=== PATIENT | female | born 1960 | race Caucasian/White ===

== ENCOUNTER 2021-12-14 21:14 | Emergency (ER) | payer OTHER ==
[~2021-12-14] VITALS: Ht 167.6 cm; Wt 90.7 kg
[2021-12-14] MEDS ORDERED: IPRATROPIUM NEB FS 0.5 MG/2.5 ML AMPUL.NEB NEB ONE (21:30)
[2021-12-14] MEDS ORDERED: ALBUTEROL FS 2.5 MG/3 ML VIAL.NEB NEB ONE (21:30)
[2021-12-14] MEDS ORDERED: methylPREDNISolone SOD SUCC 125 MG/2ML VIAL IV ONE (21:30)
[2021-12-14] MEDS ORDERED: predniSONE 20 MG TABLET PO ONE (21:30)
--- NOTE | 2021-12-14 21:35 | NUR ---
BIBRA TO ER BED 6. AAOX4. SOB. NOTED WHEEZING. BROUGHT IN FOR ASTHMA ATTACK. PT ON MONITOR. PT WAS RECEIVING BREATHING TX UPON ARRIVAL BY EMS.
[2021-12-14] MEDS ORDERED: IPRATROPIUM NEB FS 0.5 MG/2.5 ML AMPUL.NEB ONE (21:36)
[2021-12-14] MEDS ORDERED: ALBUTEROL FS 2.5 MG/3 ML VIAL.NEB ONE ×2 (21:36→21:54)
[2021-12-14] MEDS ORDERED: methylPREDNISolone SOD SUCC 125 MG/2ML VIAL ONE (21:56)
[2021-12-14] MEDS ORDERED: ALBUTEROL FS 2.5 MG/3 ML VIAL.NEB CONTNEB ONE (22:00)
[2021-12-14] MEDS ORDERED: LORAZEPAM 1 MG TABLET PO ONE (22:30)
[2021-12-14] MEDS ORDERED: LORAZEPAM 1 MG TABLET ONE (22:34)
[2021-12-14] MEDS ORDERED: PRED20TA PO (22:42)
--- NOTE | 2021-12-14 23:07 | NUR ---
Patient discharged to home in stable condition. Written and verbal after care instructions given. Patient verbalizes understanding of instruction. Pt ambulatory with a steady gait
[2021-12-14 23:16] VITALS: BP 149/80
== END 2021-12-14 23:17 | disposition home or self-care (01) ==
LOC: ER 21:20
DX: J45.901 Unspecified asthma with (acute) exacerbation (principal); I10 Essential (primary) hypertension; J44.9 Chronic obstructive pulmonary disease, unspecified; E11.9 Type 2 diabetes mellitus without complications; Z79.52 Long term (current) use of systemic steroids
CPT/HCPCS: 71045; 93005; 94640 ×2; 96372; 99284; J2930

== ENCOUNTER 2022-09-14 02:23 | Inpatient (IN) | payer OTHER ==
[~2022-09-14] VITALS: Ht 167.6 cm; Wt 90.7 kg
[~2022-09-14 02:23] MED LIST: PRED20TA PO
--- NOTE | 2022-09-14 02:27 | NUR ---
BIBRA39 FROM HOME C/O SOB AFTER RUNNING OUT OF INHALER. PT A/OX4. EMS ADMIN AERSOL NEB ON 5LPM SATTING AT 95% CONNECTED PT TO POX AND MONITOR. SAFETY MEASURES IN PLACE.
--- NOTE | 2022-09-14 02:29 | NUR ---
DR. SARAH PURI AT PT'S BEDSIDE
[2022-09-14] MEDS ORDERED: methylPREDNISolone SOD SUCC 125 MG/2ML VIAL ONE (02:51)
[2022-09-14] MEDS ORDERED: Magnesium 1GM/D5W 100ML PREMIX 0 ML IV ONE (02:51)
[2022-09-14] MEDS ORDERED: IPRATROPIUM NEB FS 0.5 MG/2.5 ML AMPUL.NEB ONE (02:52)
[2022-09-14] MEDS ORDERED: ALBUTEROL FS 2.5 MG/3 ML VIAL.NEB ONE ×2 (02:52→04:41)
[2022-09-14] MEDS ORDERED: IPRATROPIUM NEB FS 0.5 MG/2.5 ML AMPUL.NEB NEB ONE (03:00)
[2022-09-14] MEDS ORDERED: ALBUTEROL FS 2.5 MG/3 ML VIAL.NEB NEB ONE ×2 (03:00→05:00)
[2022-09-14] MEDS ORDERED: Magnesium 1GM/D5W 100ML PREMIX 200 ML IV ONE (03:00)
[2022-09-14] MEDS ORDERED: methylPREDNISolone SOD SUCC 125 MG/2ML VIAL IV ONE (03:00)
--- NOTE | 2022-09-14 03:00 | NUR ---
COVID ANTIGEN SWAB COLLECTED AND SENT TO LAB
--- NOTE | 2022-09-14 03:00 | NUR ---
RT AT PT'S BEDSIDE FOR ABG AND BREATHING TX
[2022-09-14 03:06] LABS: SITE, VBG Left Radial; VBG COHb 0.3 %; VBG MetHb 0.2 %; VBG O2Hb 74.9 %; VENT MODE, VBG RA
[2022-09-14] MEDS ORDERED: predniSONE 20 MG TABLET ONE (03:06)
--- NOTE | 2022-09-14 03:12 | NUR ---
LEAD CASE MANAGER AT PT'S BEDSIDE
--- NOTE | 2022-09-14 03:21 | NUR ---
PROCUREMENT PROFESSIONAL AT PT'S BEDSIDE
[2022-09-14] MEDS ORDERED: predniSONE 50 MG TABLET PO ONE (03:30)
[2022-09-14 03:33] LABS: BASOPHILS % (AUTO) 0.2 % (0.0-2.0); EOSINOPHILS % (AUTO) 0.8 % (0.0-6.0); HEMATOCRIT 27 % (33-45); HEMOGLOBIN 8.6 g/dL (11.5-14.8); LYMPHOCYTES # (AUTO) 1.1 K/uL (0.8-4.8); MEAN CORPUSCULAR HGB CONC 32 g/dl (31.0-36.0); MEAN CORPUSCULAR VOLUME 89 fL (82-100); MONOCYTES % (AUTO) 12.7 % (2.0-12.0); NEUTROPHILS # (AUTO) 5.7 K/uL (1.8-8.9); NEUTROPHILS % (AUTO) 72.3 % (43.0-81.0); PLATELET COUNT (AUTO) 247 K/uL (150-450); RED BLOOD CELL COUNT(AUTO) 3.02 MIL/uL (4.0-5.2); WHITE BLOOD COUNT (AUTO) 7.9 K/uL (4.3-11.0)
[2022-09-14 03:50] LABS: ALANINE AMINOTRANSFERASE 50 U/L (12-78); ALBUMIN 2.8 g/dL (3.4-5.0); ALKALINE PHOSPHATASE 168 U/L (46-116); ASPARTATE AMINOTRANSFERASE 77 U/L (15-37); BILIRUBIN,DIRECT 0.6 mg/dL (0.0-0.2); BILIRUBIN,TOTAL 0.7 mg/dL (0.2-1.0); CARBON DIOXIDE 30 mmol/L (21-32); CHLORIDE 102 mmol/L (98-107); CREATININE 0.6 mg/dL (0.6-1.3); GLUCOSE 128 mg/dL (74-106); SODIUM SERUM 143 mmol/L (136-145); TOTAL PROTEIN, SERUM 6.8 g/dL (6.4-8.2); UREA NITROGEN, BLOOD 5 mg/dL (7-18)
[2022-09-14 03:58] LABS: POTASSIUM 2.5 mmol/L (3.5-5.1)
[2022-09-14] MEDS ORDERED: ASPIRIN 325 MG TABLET ONE (04:20)
[2022-09-14] MEDS ORDERED: POTASSIUM CHLORIDE 20 MEQ POWDER PACKET ONE (04:20)
[2022-09-14] MEDS ORDERED: POTASSIUM CHLORIDE 20 MEQ POWDER PACKET PO ONE ×2 (04:30→13:00)
[2022-09-14] MEDS ORDERED: ASPIRIN 325 MG TABLET PO ONE (04:30)
--- NOTE | 2022-09-14 04:48 | NUR ---
IV ESTABLISHED LAC #20G S/L
--- NOTE | 2022-09-14 04:49 | NUR ---
RT AT PT'S BEDSIDE FOR BREATHING TX
--- NOTE | 2022-09-14 05:17 | NUR ---
CALLED RADIOLOGY TO F/U IF XRAY IMAGE SENT TO [facility]
[2022-09-14] MEDS ORDERED: INSULIN REGULAR, HUMAN 100 UNIT/ML 3 ML VIAL SQ PRN (06:00)
[2022-09-14] MEDS ORDERED: DEXTROSE 50%-WATER 50 ML DISP.SYRIN IV PRN (06:00)
[2022-09-14] MEDS ORDERED: ONDANSETRON HCL/PF 4 MG/2 ML VIAL IVP PRN (06:00)
[2022-09-14] MEDS ORDERED: ACETAMINOPHEN 325 MG TABLET PO PRN (06:00)
[2022-09-14] MEDS ORDERED: ENOXAPARIN SODIUM 100 MG/ML DISP.SYRIN SQ SCH (07:08)
[2022-09-14] MEDS ORDERED: ENOXAPARIN SODIUM 100 MG/ML DISP.SYRIN SQ ONE (07:11)
--- NOTE | 2022-09-14 07:17 | NUR ---
ADLS DONE; PT URINATED VIA BED ORTIZ. PT KEPT CLEAN AND DRY.
--- NOTE | 2022-09-14 08:00 | NUR ---
BED SUIUKTXJ=[id number]
--- NOTE | 2022-09-14 08:29 | NUR ---
PT REPORT GIVEN TO JAYDA KLINE.
--- NOTE | 2022-09-14 08:33 | NUR ---
PT TRANSFERRED TO UNIT VIA GURNEY. WARM HANDOFF GIVEN TO RN ASSIGNED.
--- NOTE | 2022-09-14 08:40 | NUR ---
SCIENCE AND OPERATIONS OFFICER NOTES RECEIVED PT FROM E.R. STAFF VIA BED, PT IS AWAKE, ALERT AND ORIENTED, DENIES PAIN, NO COMPLAINT OF SHORTNESS OF BREATH, ASSISTED TO BED, MADE COMFORTABLE, COMPLAINED OF FEELING HOT, PROVIDED PT WITH AN ELECTRIC FAN, VERBALIZED RELIEF, ROOM SET UP ORIENTATION PROVIDED, VERBALIZED UNDERSTANDING, STATED THAT SHE TAKES OMEPRAZOLE DAILY AND WILL NOT BE ABLE TO EAT WITHOUT TAKING IT, DR. THOMAS INFORMED IF WE COULD START ON PROTONIX DAILY, AWAITING FOR CALL BACK.
[2022-09-14 08:42] VITALS: BP 152/74
[2022-09-14] MEDS ORDERED: BUME1TAB8 PO (09:40)
[2022-09-14] MEDS ORDERED: OMEP40CA21 PO (09:40)
[2022-09-14] MEDS ORDERED: POTA-10 PO (09:40)
[2022-09-14] MEDS: BLOOD SUGAR DIAGNOSTIC 1 EACH STRIP IN SCH ×2 (09:51→12:11)
--- NOTE | 2022-09-14 10:00 | NUR ---
AVIATION TECHNICIAN AIRCRAFT NOTES PT REFUSED INITIAL PHYSICAL ASSESSMENT AND SKIN PHOTOS, STATED THAT SHE WANTS TO REST.
[2022-09-14] MEDS ORDERED: POTASSIUM CL. PREMIX PERIPHER. 50 ML IV SCH ×2 (13:00→14:00)
[2022-09-14] MEDS ORDERED: methylPREDNISolone SOD SUCC 40 MG/ML VIAL IV SCH (13:00)
[2022-09-14] MEDS ORDERED: PANTOPRAZOLE 40 MG TABLET.DR PO SCH (13:00)
--- NOTE | 2022-09-14 13:17 | NUR ---
SEEN AND EXAMINED BY DR THOMAS. MED ORDERED
[2022-09-14] MEDS ORDERED: LORAZEPAM INJ 2 MG/ML VIAL IV ONE (13:30)
--- NOTE | 2022-09-14 15:15 | NUR ---
COOLER CONVEYOR LOADER NOTES PT IN BED, AWAKE, ALERT AND ORIENTED, NO COMPLAINT AT THIS TIME, STATED THAT SHE FEELS BETTER, PT REFUSED POTASSIUM REPLACEMENT, EXPLAINED RISKS, STILL REFUSED, STATED THAT SHE WOULD LIKE TO LEAVE AGAINST MEDICAL ADVISE, DISCUSSED RISKS OF LEAVING AMA, PT STILL WANTS TO LEAVE, SAID SHE WILL TAKE A TAXI, PT SAID SHE HAS O2 AT HOME, PT'S O2 SAT IS 96% OF 3L VIA N/C, NOT IN DISTRESS AT THIS TIME, PT SIGNED AMA FORM, PT INSTRUCTED TO GO TO THE NEAREST E.R. IN CASE OF EMERGENCY, VERBALIZED UNDERSTANDING, ASSISTED TO HOSPITAL LOBBY AND LEFT. CHARGE NURSE, NURSING MAINSPRING FORMER BRACE END AND DR. THOMAS INFORMED.
[2022-09-14] MEDS ORDERED: BUMETANIDE INJ 0.25 MG/ML VIAL IV ONE (19:00)
[2022-09-15] MEDS ORDERED: ASPIRIN EC 81 MG TABLET.DR PO SCH (09:00)
[2022-09-15] MEDS ORDERED: BUMETANIDE (1 MG) 1 MG TABLET PO SCH (09:00)
[2022-09-15] MEDS ORDERED: POTASSIUM CHLORIDE 10 MEQ TABLET.SA PO SCH (09:00)
== END 2022-09-14 15:15 | disposition left against medical advice (07) | DRG 140 ==
LOC: ER 02:39 → TELE 08:12
PROVIDERS: ADMIT Nurse Practitioner Acute Care; ATTEND Nurse Practitioner Acute Care
DX: J44.1 Chronic obstructive pulmonary disease with (acute) exacerbation (principal); I50.33 Acute on chronic diastolic (congestive) heart failure; I21.A1 Myocardial infarction type 2; I11.0 Hypertensive heart disease with heart failure; Z99.81 Dependence on supplemental oxygen; Z20.822 Contact with and (suspected) exposure to COVID-19; E11.9 Type 2 diabetes mellitus without complications; E66.01 Morbid (severe) obesity due to excess calories; E87.6 Hypokalemia; F41.9 Anxiety disorder, unspecified; K21.9 Gastro-esophageal reflux disease without esophagitis; Z87.891 Personal history of nicotine dependence; Z68.32 Body mass index [BMI] 32.0-32.9, adult
CPT/HCPCS: 36415; 36600; 71045-TC; 80048-TC; 80076-TC; 82803-TC; 82962-TC; 84132-TC; 84484-TC; 85025-TC; 87081-TC; 93307-TC; C9803; G0378; J1650; J1815; J2060; J2920; J2930; J3475

== ENCOUNTER 2022-11-26 02:17 | Inpatient (IN) | payer OTHER ==
[~2022-11-26] VITALS: Ht 162.6 cm; Wt 116.1 kg
[~2022-11-26 02:17] MED LIST changes: +BUME1TAB8 PO; +OMEP40CA21 PO; +POTA-10 PO; -PRED20TA PO
[2022-11-26] MEDS ORDERED: methylPREDNISolone SOD SUCC 125 MG/2ML VIAL ONE (02:25)
[2022-11-26] MEDS ORDERED: IPRATROPIUM NEB FS 0.5 MG/2.5 ML AMPUL.NEB ONE (02:28)
[2022-11-26] MEDS ORDERED: ALBUTEROL FS 2.5 MG/3 ML VIAL.NEB ONE ×2 (02:28→09:13)
[2022-11-26] MEDS ORDERED: ALBUTEROL FS 2.5 MG/3 ML VIAL.NEB NEB ONE (02:30)
[2022-11-26] MEDS ORDERED: IPRATROPIUM NEB FS 0.5 MG/2.5 ML AMPUL.NEB NEB ONE (02:30)
[2022-11-26] MEDS ORDERED: methylPREDNISolone SOD SUCC 125 MG/2ML VIAL IV ONE (02:30)
[2022-11-26 03:51] LABS: BASOPHILS % (AUTO) 0.4 % (0.0-2.0); EOSINOPHILS % (AUTO) 0.8 % (0.0-6.0); HEMATOCRIT 25 % (33-45); HEMOGLOBIN 7.7 g/dL (11.5-14.8); LYMPHOCYTES # (AUTO) 1.6 K/uL (0.8-4.8); MEAN CORPUSCULAR HGB CONC 30 g/dl (31.0-36.0); MEAN CORPUSCULAR VOLUME 78 fL (82-100); MONOCYTES # (AUTO) 0.6 K/uL (0.1-1.30); MONOCYTES % (AUTO) 9.5 % (2.0-12.0); NEUTROPHILS # (AUTO) 4.3 K/uL (1.8-8.9); NEUTROPHILS % (AUTO) 65.3 % (43.0-81.0); PLATELET COUNT (AUTO) 158 K/uL (150-450); RED BLOOD CELL COUNT(AUTO) 3.23 MIL/uL (4.0-5.2); WHITE BLOOD COUNT (AUTO) 6.6 K/uL (4.3-11.0)
[2022-11-26 04:05] LABS: CALCIUM, SERUM 8.3 mg/dL (8.5-10.1); CARBON DIOXIDE 33 mmol/L (21-32); CHLORIDE 98 mmol/L (98-107); CREATININE 0.6 mg/dL (0.6-1.3); GLUCOSE 164 mg/dL (74-106); SODIUM SERUM 140 mmol/L (136-145); UREA NITROGEN, BLOOD 6 mg/dL (7-18)
[2022-11-26 04:21] LABS: POTASSIUM 2.7 mmol/L (3.5-5.1)
[2022-11-26] MEDS ORDERED: POTASSIUM CHLORIDE 20 MEQ TAB.PRT.SR PO ONE ×2 (04:30→04:36)
[2022-11-26] MEDS: ALBUTEROL FS 2.5 MG/0.5 ML VIAL.NEB NEB SCH ×7 (05:00→23:35)
[2022-11-26] MEDS ORDERED: ALBUTEROL FS 2.5 MG/0.5 ML VIAL.NEB ONE (05:09)
[2022-11-26] MEDS ORDERED: hydrALAZINE HCL IV 20 MG VIAL IV PRN (05:30)
[2022-11-26] MEDS ORDERED: ALBUTEROL FS 2.5 MG/0.5 ML VIAL.NEB NEB PRN (05:30)
[2022-11-26] MEDS ORDERED: MORPHINE SULFATE INJ 2 MG/ML DISP.SYRIN IV PRN (05:30)
[2022-11-26] MEDS ORDERED: ACETAMINOPHEN 325 MG TABLET PO PRN (05:30)
[2022-11-26] MEDS ORDERED: ONDANSETRON HCL/PF 4 MG/2 ML VIAL IVP PRN (05:30)
[2022-11-26] MEDS ORDERED: IPRATROPIUM/ALBUTEROL INHALER IH SCH (06:00)
[2022-11-26 08:30] LABS: BILIRUBIN,DIRECT 0.2 mg/dL (0.0-0.2); BILIRUBIN,TOTAL 0.3 mg/dL (0.2-1.0)
[2022-11-26] MEDS: BUMETANIDE INJ 0.25 MG/ML VIAL IV SCH ×2 (09:00→13:30)
[2022-11-26] MEDS ORDERED: HEPARIN SODIUM, PORCINE 5000 UNITS/1 ML VIAL SQ SCH (09:00)
[2022-11-26] MEDS: IPRATROPIUM NEB FS 0.5 MG/2.5 ML AMPUL.NEB NEB SCH ×5 (09:21→23:35)
[2022-11-26] MEDS ORDERED: LORAZEPAM 1 MG TABLET ONE (09:37)
[2022-11-26] MEDS ORDERED: DILT180C66 PO (09:38)
[2022-11-26] MEDS ORDERED: FURO40TA5 PO (09:38)
[2022-11-26] MEDS ORDERED: IPRA3AMP23 NEB (09:38)
[2022-11-26] MEDS ORDERED: ALBU18HF2 IH (09:38)
[2022-11-26] MEDS ORDERED: LORAZEPAM 1 MG TABLET PO PRN (10:00)
[2022-11-26 12:00] VITALS: BP 132/75
[2022-11-26] MEDS: LORAZEPAM INJ 2 MG/ML VIAL IV PRN ×2 (12:48→20:14)
[2022-11-26] MEDS: methylPREDNISolone SOD SUCC 125 MG/2ML VIAL IV SCH ×2 (13:31→18:16)
[2022-11-26] MEDS: POTASSIUM CHLORIDE 20 MEQ TAB.PRT.SR PO SCH (13:31)
[2022-11-26] MEDS: LEVOFLOXACIN 750 MG /D5W 150ML 750 MG in PREMIX 1 EA IV SCH (15:05)
[2022-11-26 16:00] VITALS: BP 156/78
[2022-11-26] MEDS ORDERED: LORAZEPAM INJ 2 MG/ML VIAL IV ONE (16:30)
[2022-11-26 20:00] VITALS: BP 134/79
[2022-11-27] VITALS: BP 126/66
[2022-11-27] MEDS: ZOLPIDEM TARTRATE 10 MG TABLET PO PRN ×2 (01:08→21:04)
[2022-11-27] MEDS: methylPREDNISolone SOD SUCC 125 MG/2ML VIAL IV SCH ×3 (01:30→16:48)
[2022-11-27 04:00] VITALS: BP 128/70
[2022-11-27] MEDS: ALBUTEROL FS 2.5 MG/0.5 ML VIAL.NEB NEB SCH ×6 (04:12→23:54)
[2022-11-27] MEDS: IPRATROPIUM NEB FS 0.5 MG/2.5 ML AMPUL.NEB NEB SCH ×6 (04:13→23:54)
[2022-11-27] MEDS: LEVOFLOXACIN 750 MG /D5W 150ML 750 MG in PREMIX 1 EA IV SCH (06:06)
[2022-11-27 07:35] LABS: BASOPHILS % (AUTO) 0.1 % (0.0-2.0); HEMATOCRIT 25 % (33-45); HEMOGLOBIN 7.7 g/dL (11.5-14.8); LYMPHOCYTES # (AUTO) 0.2 K/uL (0.8-4.8); LYMPHOCYTES % (AUTO) 4.9 % (20.0-44.0); MEAN CORPUSCULAR HGB CONC 31 g/dl (31.0-36.0); MEAN CORPUSCULAR VOLUME 77 fL (82-100); MONOCYTES # (AUTO) 0.2 K/uL (0.1-1.30); MONOCYTES % (AUTO) 4.7 % (2.0-12.0); NEUTROPHILS # (AUTO) 3.9 K/uL (1.8-8.9); NEUTROPHILS % (AUTO) 90.3 % (43.0-81.0); PLATELET COUNT (AUTO) 150 K/uL (150-450); RED BLOOD CELL COUNT(AUTO) 3.18 MIL/uL (4.0-5.2); WHITE BLOOD COUNT (AUTO) 4.3 K/uL (4.3-11.0)
[2022-11-27 08:00] VITALS: BP 137/78
[2022-11-27 08:29] LABS: ALBUMIN 3.3 g/dL (3.4-5.0); BILIRUBIN,TOTAL 0.6 mg/dL (0.2-1.0); CALCIUM, SERUM 8.7 mg/dL (8.5-10.1); CREATININE 0.6 mg/dL (0.6-1.3); MAGNESIUM 1.6 mg/dL (1.8-2.4); PHOSPHORUS 2.9 mg/dL (2.5-4.9); POTASSIUM 3.4 mmol/L (3.5-5.1); TOTAL PROTEIN, SERUM 7.2 g/dL (6.4-8.2)
[2022-11-27 09:01] LABS: ABG BASE EXCESS -6.6 mmol/L; ABG PCO2 29.5 mmHg (35.0-45.0); ABG PH 7.391 (7.350-7.450); ABG PO2 83.4 mmHg (75.0-100.0); MetHb 0.2 % (0.0-1.5); O2Hb 94.3 % (94.0-97.0); SITE, ABG Right Radial
[2022-11-27] MEDS: BUMETANIDE INJ 0.25 MG/ML VIAL IV SCH (09:42)
[2022-11-27] MEDS: POTASSIUM CHLORIDE 20 MEQ TAB.PRT.SR PO SCH (09:43)
[2022-11-27] MEDS ORDERED: MAGNESIUM OXIDE 400 MG TABLET PO ONE (10:00)
[2022-11-27] MEDS ORDERED: PANTOPRAZOLE 40 MG TABLET.DR PO SCH (10:00)
[2022-11-27] MEDS: LORAZEPAM 0.5 MG TABLET PO PRN (10:20)
[2022-11-27 12:00] VITALS: BP 148/78
[2022-11-27 14:21] LABS: ABG BASE EXCESS 8.6 mmol/L; ABG OXYGEN SATURATION 82.2 % (92.0-98.5); ABG PCO2 40.5 mmHg (35.0-45.0); ABG PH 7.518 (7.350-7.450); ABG PO2 47.2 mmHg (75.0-100.0); AaDO2 104.7 mmHg; COHb 0.6 % (0.5-1.5); MetHb 0.4 % (0.0-1.5); O2Hb 81.4 % (94.0-97.0)
[2022-11-27 16:00] VITALS: BP 145/92
[2022-11-27] MEDS ORDERED: LORAZEPAM 0.5 MG TABLET PO ONE (18:00)
[2022-11-27 20:00] VITALS: BP 125/90
[2022-11-28] VITALS: BP 122/89
[2022-11-28] MEDS: methylPREDNISolone SOD SUCC 125 MG/2ML VIAL IV SCH ×2 (01:53→09:43)
[2022-11-28] MEDS: LORAZEPAM 0.5 MG TABLET PO PRN ×3 (01:53→16:01)
[2022-11-28] MEDS: ALBUTEROL FS 2.5 MG/0.5 ML VIAL.NEB NEB SCH ×4 (03:30→15:12)
[2022-11-28] MEDS: IPRATROPIUM NEB FS 0.5 MG/2.5 ML AMPUL.NEB NEB SCH ×4 (03:30→15:12)
[2022-11-28 04:00] VITALS: BP 120/85
[2022-11-28] MEDS: LEVOFLOXACIN 750 MG /D5W 150ML 750 MG in PREMIX 1 EA IV SCH (04:45)
[2022-11-28 07:14] LABS: CALCIUM, SERUM 9.4 mg/dL (8.5-10.1); CREATININE 0.7 mg/dL (0.6-1.3); POTASSIUM 4.1 mmol/L (3.5-5.1)
[2022-11-28] MEDS ORDERED: PANTOPRAZOLE 40 MG TABLET.DR PO SCH (07:30)
[2022-11-28 08:00] VITALS: BP 150/94
[2022-11-28] MEDS: BUMETANIDE INJ 0.25 MG/ML VIAL IV SCH (09:40)
[2022-11-28] MEDS: POTASSIUM CHLORIDE 20 MEQ TAB.PRT.SR PO SCH (09:40)
[2022-11-28 12:00] VITALS: BP 142/81
[2022-11-28] MEDS ORDERED: PRED20TA PO (13:50)
[2022-11-28 16:00] VITALS: BP 130/81
[2022-11-29] MEDS ORDERED: LEVOFLOXACIN (250MG) 250 MG TABLET PO SCH (09:00)
== END 2022-11-28 19:00 | disposition home health service (06) | DRG 140 ==
LOC: ER 02:18 → TRANSITION 07:39 → TELE 08:26 → TELE-TD 10:31 → TELE1 11-27 09:55
PROVIDERS: ADMIT Internal Medicine; ATTEND Nurse Practitioner Acute Care
DX: J44.1 Chronic obstructive pulmonary disease with (acute) exacerbation (principal); J96.21 Acute and chronic respiratory failure with hypoxia; E87.20 Acidosis, unspecified; R16.0 Hepatomegaly, not elsewhere classified; D50.9 Iron deficiency anemia, unspecified; E11.9 Type 2 diabetes mellitus without complications; K76.0 Fatty (change of) liver, not elsewhere classified; E66.01 Morbid (severe) obesity due to excess calories; F41.9 Anxiety disorder, unspecified; J96.22 Acute and chronic respiratory failure with hypercapnia; Z20.822 Contact with and (suspected) exposure to COVID-19; G47.33 Obstructive sleep apnea (adult) (pediatric); Z87.891 Personal history of nicotine dependence; I10 Essential (primary) hypertension; K21.9 Gastro-esophageal reflux disease without esophagitis; K44.9 Diaphragmatic hernia without obstruction or gangrene; Z99.81 Dependence on supplemental oxygen; Z68.41 Body mass index [BMI] 40.0-44.9, adult
CPT/HCPCS: 36415; 36600; 71045-TC; 71250-TC; 80048-TC; 80053-TC; 82247-TC; 82248-TC; 82803-TC; 83605-TC; 83735-TC; 83880; 84100-TC; 84484-TC; 85025-TC; 87081-TC; 94799-TC; 97116-TC; 97530-TC; A4216; A4223; C9803; G0378; J1956; J2060; J2930; J3490; J7050

== ENCOUNTER 2022-12-28 15:53 | Inpatient (IN) | payer OTHER ==
[~2022-12-28] VITALS: Ht 162.6 cm; Wt 117.0 kg
[~2022-12-28 15:53] MED LIST changes: +ALBU18HF2 IH; -BUME1TAB8 PO; +DILT180C66 PO; +FURO40TA5 PO; +IPRA3AMP23 NEB; +PRED20TA PO
--- NOTE | 2022-12-28 16:00 | NUR ---
RECEIVED PT 62 YRS FEMALE CAME FROM HOME BY DOMINGO WITH FIO2 HHNTX C/O SOB SINCE YESTERDAY
[2022-12-28 16:17] LABS: ABG BASE EXCESS 4.3 mmol/L; ABG PCO2 38.4 mmHg (35.0-45.0); ABG PH 7.481 (7.350-7.450); ABG PO2 76.8 mmHg (75.0-100.0); COHb 0.2 % (0.5-1.5); MetHb 0.3 % (0.0-1.5); O2Hb 93.8 % (94.0-97.0); SITE, ABG Right Radial
[2022-12-28] MEDS ORDERED: MIRT-90 PO (16:37)
[2022-12-28] MEDS ORDERED: DULO20CA19 PO (16:37)
--- NOTE | 2022-12-28 16:40 | NUR ---
SUBMITTED MOVE SHEET
[2022-12-28 16:45] LABS: BASOPHILS # (AUTO) 0.1 K/uL (0.0-0.2); EOSINOPHILS % (AUTO) 0.1 % (0.0-6.0); HEMATOCRIT 27 % (33-45); HEMOGLOBIN 8.2 g/dL (11.5-14.8); LYMPHOCYTES # (AUTO) 0.9 K/uL (0.8-4.8); LYMPHOCYTES % (AUTO) 5.9 % (20.0-44.0); MEAN CORPUSCULAR HGB CONC 30 g/dl (31.0-36.0); MEAN CORPUSCULAR VOLUME 77 fL (82-100); MONOCYTES # (AUTO) 0.8 K/uL (0.1-1.30); MONOCYTES % (AUTO) 5.4 % (2.0-12.0); NEUTROPHILS # (AUTO) 12.9 K/uL (1.8-8.9); NEUTROPHILS % (AUTO) 87.6 % (43.0-81.0); PLATELET COUNT (AUTO) 335 K/uL (150-450); RED BLOOD CELL COUNT(AUTO) 3.49 MIL/uL (4.0-5.2); WHITE BLOOD COUNT (AUTO) 14.7 K/uL (4.3-11.0)
--- NOTE | 2022-12-28 16:55 | NUR ---
WANDA CLARK SENT TO LAB
[2022-12-28 17:03] LABS: CALCIUM, SERUM 8.2 mg/dL (8.5-10.1); CREATININE 0.5 mg/dL (0.6-1.3); POTASSIUM 3.3 mmol/L (3.5-5.1)
[2022-12-28 17:19] LABS: ALBUMIN 2.8 g/dL (3.4-5.0); BILIRUBIN,DIRECT 0.4 mg/dL (0.0-0.2); TOTAL PROTEIN, SERUM 7.4 g/dL (6.4-8.2)
[2022-12-28] MEDS ORDERED: IPRATROPIUM NEB FS 0.5 MG/2.5 ML AMPUL.NEB ONE (17:40)
[2022-12-28] MEDS ORDERED: ALBUTEROL FS 2.5 MG/3 ML VIAL.NEB ONE (17:40)
--- NOTE | 2022-12-28 17:44 | NUR ---
EPIC HOLISTIC HEALTH PRACTITIONER PAGED.
[2022-12-28] MEDS ORDERED: ALBUTEROL FS 2.5 MG/3 ML VIAL.NEB NEB ONE (18:00)
[2022-12-28] MEDS ORDERED: IPRATROPIUM NEB FS 0.5 MG/2.5 ML AMPUL.NEB NEB ONE (18:00)
[2022-12-28 18:34] LABS: LYMPHOCYTES % (MANUAL) 4 % (16-48); MONOCYTES % (MANUAL) 4 % (0-11.0); NEUTROPHILS % (MANUAL) 92 (42-76)
--- NOTE | 2022-12-28 19:30 | NUR ---
HAND OFF ZAC MONTELONGO
[2022-12-28] MEDS ORDERED: MAG HYDROX/AL HYDROX/SIMETH 30 ML UDC PO PRN (21:00)
[2022-12-28] MEDS ORDERED: ZOLPIDEM TARTRATE 5 MG TABLET PO PRN (21:00)
[2022-12-28] MEDS ORDERED: Z GUARD REMEDY 4 OZ OINT TP PRN (21:00)
[2022-12-28] MEDS ORDERED: MAGNESIUM HYDROXIDE 30 ML UDC PO PRN (21:00)
[2022-12-28] MEDS ORDERED: Medication Not On Formulary EA (Ipratropium/Albuterol Sulfate (Duoneb 2.5-0.5 Mg/3 Ml So NEB PRN (21:00)
[2022-12-28] MEDS ORDERED: POTASSIUM CHLORIDE 20 MEQ TAB.PRT.SR PO ONE (21:00)
[2022-12-28] MEDS ORDERED: ACETAMINOPHEN 325 MG TABLET PO PRN (21:00)
[2022-12-28] MEDS ORDERED: ONDANSETRON HCL/PF 4 MG/2 ML VIAL IVP PRN (21:00)
[2022-12-28] MEDS ORDERED: LEVOFLOXACIN 500 MG /D5W 100ML 500 MG in PREMIX 1 EA IV SCH (21:00)
[2022-12-28] MEDS ORDERED: FUROSEMIDE 40 MG/4 ML VIAL IV ONE (21:00)
--- NOTE | 2022-12-28 21:20 | NUR ---
RN NOTE RECEIVED ER ADMISSION REPORT FROM JAYDA FRANK. ALL PERTINENT ADMISSION INFO REGARDING PT NOTED. WILL WAIT FOR PT TO BE TRANSFERRED TO UNIT AND ADDRESS NEEDS ACCORDINGLY. DIRECTOR OF HEALTH CARE MARKETING MADE AWARE.
--- NOTE | 2022-12-28 21:26 | NUR ---
REPORT GIVEN TO ADELSO MONTELONGO [facility]
[2022-12-28] MEDS ORDERED: IPRATROPIUM NEB FS 0.5 MG/2.5 ML AMPUL.NEB IH PRN (21:30)
[2022-12-28] MEDS ORDERED: ALBUTEROL FS 2.5 MG/0.5 ML VIAL.NEB NEB PRN (21:30)
[2022-12-28] MEDS ORDERED: ALBUTEROL FS 2.5 MG/3 ML VIAL.NEB NEB PRN (21:30)
--- NOTE | 2022-12-28 21:47 | NUR ---
PT TRANSFERED TO [facility] BED ROOM 109 PER ACLS PROTOCOL
--- NOTE | 2022-12-28 21:50 | NUR ---
RN NOTE RECEIVED PT FROM ER VIA RICH ACCOMPANIED BY 2 ER STAFF AND TRANSFERRED TO BED VIA 2-3 PERSON ASSIST. PT IS A/OX3-4; ON 4L OF 02 VIA NC WITH NOTED SOB ON EXERTION. COMPREHENSIVE PHYSICAL ASSESSMENT AND PATIENT CARE DONE. CALL LIGHT WITHIN REACH, SAFETY MEASURES IN PLACE, WILL CONTINUE MONITOR AND ASSESS THROUGHOUT THE SHIFT. WILL CARRY OUT MD ORDERS ACCORDINGLY. REPAIRER SHOE STICKS MADE AWARE.
[2022-12-28 22:00] VITALS: BP 132/74
--- NOTE | 2022-12-28 22:17 | NUR ---
RN TOMMY Larkin from [facility] pharmacy called recommended to change levaquin dosage to 750mg from 500mg for the indication that MD put in. Notified Lani Torres NP and obtained new order. Primary RN Ankush made aware.
[2022-12-28] MEDS: methylPREDNISolone SOD SUCC 40 MG/ML VIAL IV SCH (22:42)
[2022-12-28] MEDS: MIRTAZAPINE 15 MG TABLET PO SCH (22:42)
[2022-12-28] MEDS: ENOXAPARIN SODIUM 40 MG/0.4 ML DISP.SYRIN SQ SCH (22:43)
[2022-12-28] MEDS ORDERED: LEVOFLOXACIN 250 MG /D5W 50 ML 100 ML IV ONE (22:44)
[2022-12-28] MEDS ORDERED: LEVOFLOXACIN 250 MG /D5W 50 ML 50 ML IV ONE (22:48)
[2022-12-28] MEDS: LEVOFLOXACIN 750 MG /D5W 150ML 750 MG in PREMIX 1 EA IV SCH (22:53)
[2022-12-29] VITALS: BP 133/86
[2022-12-29 04:00] VITALS: BP 134/60
--- NOTE | 2022-12-29 04:44 | NUR ---
RN NOTE PT ANXIOUS AND RESTLESS. SECURED ORDER FROM ANTONIA VALDIVIA,YUKI XANAX 1MG Q6H PRN. RN ACKNOWLEDGED. WILLL CARRY OUT.
[2022-12-29] MEDS: methylPREDNISolone SOD SUCC 40 MG/ML VIAL IV SCH ×3 (04:47→21:08)
[2022-12-29] MEDS ORDERED: ALPRAZOLAM 1 MG TABLET PO PRN (05:00)
[2022-12-29 05:55] LABS: BASOPHILS % (AUTO) 0.1 % (0.0-2.0); HEMATOCRIT 27 % (33-45); HEMOGLOBIN 8.4 g/dL (11.5-14.8); LYMPHOCYTES # (AUTO) 0.4 K/uL (0.8-4.8); LYMPHOCYTES % (AUTO) 2.9 % (20.0-44.0); MEAN CORPUSCULAR HGB CONC 31 g/dl (31.0-36.0); MEAN CORPUSCULAR VOLUME 76 fL (82-100); MONOCYTES # (AUTO) 0.2 K/uL (0.1-1.30); MONOCYTES % (AUTO) 1.7 % (2.0-12.0); NEUTROPHILS # (AUTO) 12.4 K/uL (1.8-8.9); NEUTROPHILS % (AUTO) 95.3 % (43.0-81.0); PLATELET COUNT (AUTO) 306 K/uL (150-450); RED BLOOD CELL COUNT(AUTO) 3.57 MIL/uL (4.0-5.2); WHITE BLOOD COUNT (AUTO) 13.1 K/uL (4.3-11.0)
[2022-12-29 06:18] LABS: CALCIUM, SERUM 8.6 mg/dL (8.5-10.1); CREATININE 0.7 mg/dL (0.6-1.3); MAGNESIUM 1.8 mg/dL (1.8-2.4); PHOSPHORUS 2.7 mg/dL (2.5-4.9); POTASSIUM 3.4 mmol/L (3.5-5.1)
--- NOTE | 2022-12-29 06:34 | NUR ---
RN CLOSING NOTE PATIENT REMAINS IN ROOM IN NO SIGNS OF RESPIRATORY DISTRESS, PATIENT NOW ON 2L OF O2 VIA NC;TOLERATING WELL SATURATING @ 94% SP02 BUT STILL WITH NOTED WHEEZES AND SOB UPON EXERTION. SAFETY MEASURES IMPLEMENTED, BED IN LOWEST POSITION, LOCKED, SIDE RAILS UP, CALL LIGHT WITHIN REACH. ALL NEEDS AND ORDERS ADDRESSED DURING THE SHIFT. IV ACCESS MAINTAINED INTACT, SECURED AND FLUSHING WELL. ALL DUE MEDS GIVEN ORDERED & SCHEDULED ; PATIENT TOLERATED WELL. PATIENT KEPT CLEAN AND COMFORTABLE WITHIN THE SHIFT. PATIENT ENDORSED TO INCOMING SHIFT RN WITH STABLE VITAL SIGN AND FOR CONTINUITY OF CARE.
[2022-12-29 06:41] LABS: ABG BASE EXCESS 9.5 mmol/L; ABG OXYGEN SATURATION 97.1 % (92.0-98.5); ABG PCO2 53.3 mmHg (35.0-45.0); ABG PH 7.436 (7.350-7.450); ABG PO2 98.4 mmHg (75.0-100.0); AaDO2 125.5 mmHg; COHb 0.5 % (0.5-1.5); MetHb 0.3 % (0.0-1.5); O2Hb 96.3 % (94.0-97.0); SITE, ABG Right Radial; VENT MODE, BG 5L BC
--- NOTE | 2022-12-29 07:30 | NUR ---
RN NOTE RECEIVED PATIENT, ALERT, ORIENTED X3, ON NS 2L, NO SIGNS OR SYMPTOMS OF SOB NOTED AT THIS TIME, IV ACCESS ON LEFT FOREARM 20 BAM, PATENT AND FLUSHING WELL, HOB ELEVATED, PATIENT DENIES ANY DISCOMFORT OR PAIN AT THIS TIME, SAFETY PRECAUTIONS IN PLACE. BED IN LOWEST, LOCKED POSITION WITH SR UP, CALL LIGHT WITHIN REACH. WILL CONTINUE TO MONITOR PATIENT THROUGHOUT SHIFT.
[2022-12-29 08:00] VITALS: BP 145/92
[2022-12-29] MEDS: PANTOPRAZOLE 40 MG TABLET.DR PO SCH (08:11)
[2022-12-29] MEDS ORDERED: PANTOPRAZOLE 40 MG VIAL IV SCH (09:00)
[2022-12-29] MEDS: DULOXETINE HCL 30 MG CAPSULE.DR PO SCH (09:00)
--- NOTE | 2022-12-29 09:00 | NUR ---
RN NOTE THERE WAS TWO DIFFERENT DOSES OF THIS MEDICATION, PHARMACY NOTIFIED.
[2022-12-29] MEDS ORDERED: LORAZEPAM 1 MG TABLET PO PRN (09:30)
[2022-12-29] MEDS ORDERED: GUAIFENESIN/D-METHORPHAN HB 5 ML UDC PO PRN (09:30)
[2022-12-29] MEDS: DULOXETINE HCL 20 MG CAPSULE.DR PO SCH (10:24)
[2022-12-29] MEDS: DILTIAZEM HCL CD 180 MG PO SCH (10:25)
[2022-12-29] MEDS: ALBUTEROL FS 2.5 MG/0.5 ML VIAL.NEB NEB SCH ×4 (11:00→19:25)
[2022-12-29] MEDS: IPRATROPIUM NEB FS 0.5 MG/2.5 ML AMPUL.NEB NEB SCH ×3 (11:30→19:25)
[2022-12-29 12:00] VITALS: BP 134/75
[2022-12-29] MEDS ORDERED: POTASSIUM CHLORIDE 20 MEQ TAB.PRT.SR PO SCH (13:00)
[2022-12-29] MEDS ORDERED: FUROSEMIDE 20 MG/2 ML VIAL IV SCH (14:00)
[2022-12-29 16:00] VITALS: BP 140/83
--- NOTE | 2022-12-29 19:15 | NUR ---
RN NOTE RECEIVED PT FOR CONTINUITY OF CARE. PATIENT A/OX3-4 IN NO S/SX OF ACUTE DISTRESS AT THIS TIME; CURRENTLY ON 2L OF O2 VIA NC; WITH 02 SAT >95% AT THIS TIME.WITH IV ACCESS L AC#20; PATENT, INTACT AND FLUSHING WELL. WILL ENSURE SAFETY MEASURES WITHIN THE SHIFT. PATIENT BED ALARM IS ON. HEAD OF BED ELEVATED. BED IS LOCKED, IN LOWEST POSITION AND SIDE RAILS UP. CALL LIGHT WITHIN REACH OF THE PATIENT. WILL CONTINUE TO MONITOR AND REASSESS FOR ANY CHANGES AND WILL CARRY OUT ANY ONGOING AND ACTIVE MD ORDER.
[2022-12-29 20:00] VITALS: BP 128/80
[2022-12-29] MEDS: LEVOFLOXACIN 750 MG /D5W 150ML 750 MG in PREMIX 1 EA IV SCH (21:07)
[2022-12-29] MEDS: ENOXAPARIN SODIUM 40 MG/0.4 ML DISP.SYRIN SQ SCH (21:08)
[2022-12-29] MEDS: MIRTAZAPINE 15 MG TABLET PO SCH (21:08)
[2022-12-30] VITALS: BP 138/81
[2022-12-30] MEDS: ALBUTEROL FS 2.5 MG/0.5 ML VIAL.NEB NEB SCH ×7 (00:29→23:17)
[2022-12-30] MEDS: IPRATROPIUM NEB FS 0.5 MG/2.5 ML AMPUL.NEB NEB SCH ×7 (00:29→23:17)
--- NOTE | 2022-12-30 00:30 | NUR ---
PT REFUSES NOC BIPAP. STATES SHE IS CLAUSTROPHOBIC AND WILL NOT TOLERATE. PT SLEEPS COMFORTABLY ON 4L NC. WILL TITRATE 02 THROUGHOUT NIGHT TOLERATED.
[2022-12-30 04:00] VITALS: BP 132/76
[2022-12-30] MEDS: methylPREDNISolone SOD SUCC 40 MG/ML VIAL IV SCH ×3 (05:18→16:37)
[2022-12-30 06:35] LABS: BASOPHILS % (AUTO) 0.2 % (0.0-2.0); HEMATOCRIT 26 % (33-45); HEMOGLOBIN 7.8 g/dL (11.5-14.8); LYMPHOCYTES # (AUTO) 0.6 K/uL (0.8-4.8); LYMPHOCYTES % (AUTO) 5.8 % (20.0-44.0); MEAN CORPUSCULAR HGB CONC 30 g/dl (31.0-36.0); MEAN CORPUSCULAR VOLUME 78 fL (82-100); MONOCYTES # (AUTO) 0.4 K/uL (0.1-1.30); MONOCYTES % (AUTO) 3.8 % (2.0-12.0); NEUTROPHILS # (AUTO) 8.8 K/uL (1.8-8.9); NEUTROPHILS % (AUTO) 90.2 % (43.0-81.0); PLATELET COUNT (AUTO) 244 K/uL (150-450); RED BLOOD CELL COUNT(AUTO) 3.33 MIL/uL (4.0-5.2); WHITE BLOOD COUNT (AUTO) 9.7 K/uL (4.3-11.0)
--- NOTE | 2022-12-30 06:37 | NUR ---
RN NOTE PATIENT REMAINS IN ROOM IN NO SIGNS OF RESPIRATORY DISTRESS, PATIENT NOW ON 2L OF O2 VIA NC; TOLERATING WELL SATURATING @ 93% SP02NO COMPLAINTS OF PAIN OR DISCOMORT DURING THE SHIFT. ON NPO. SAFETY MEASURES IMPLEMENTED, BED IN LOWEST POSITION, LOCKED, SIDE RAILS UP, CALL LIGHT WITHIN REACH. ALL NEEDS AND ORDERS ADDRESSED DURING THE SHIFT. IV ACCESS MAINTAINED INTACT, SECURED AND FLUSHING WELL. ALL DUE MEDS GIVEN ORDERED & SCHEDULED ; PATIENT TOLERATED WELL. PATIENT KEPT CLEAN AND COMFORTABLE WITHIN THE SHIFT. PATIENT ENDORSED TO INCOMING SHIFT RN WITH STABLE VITAL SIGN AND FOR CONTINUITY OF CARE.
--- NOTE | 2022-12-30 07:07 | NUR ---
RN OPENING NOTE RECEIVED PATIENT IN BED ASLEEP, ON 4L OXYGEN VIA NC,O2:95% IV SITE IS ON LEFT FA 20G SL, INTACT PATENT. PATIENT IS AMBULATORY WITH ASSISTANCE, BPR. SAFETY MEASURE IMPLEMENT BED IN LOW POSITION AND LOCKED, HEAD OF THE BED ELEVATED,CALL LIGHT WITHIN REACH, WILL CONTINUE TO MONITOR.
[2022-12-30 07:14] LABS: CALCIUM, SERUM 8.3 mg/dL (8.5-10.1); CREATININE 0.6 mg/dL (0.6-1.3); MAGNESIUM 1.8 mg/dL (1.8-2.4); PHOSPHORUS 2.8 mg/dL (2.5-4.9)
[2022-12-30 07:35] LABS: ALBUMIN 2.4 g/dL (3.4-5.0); BILIRUBIN,DIRECT 0.5 mg/dL (0.0-0.2); BILIRUBIN,TOTAL 0.6 mg/dL (0.2-1.0); TOTAL PROTEIN, SERUM 6.3 g/dL (6.4-8.2)
[2022-12-30] MEDS: PANTOPRAZOLE 40 MG TABLET.DR PO SCH (07:53)
[2022-12-30 08:00] VITALS: BP 107/38
[2022-12-30 08:29] LABS: IRON, SERUM 19 ug/dl (50-175); TOTAL IRON BINDING CAPACITY 393 ug/dl (250-450)
--- NOTE | 2022-12-30 08:53 | NUR ---
RT NOTE Pt. is refusing ABG blood draw. States it is very painful and doesn't like it. RN Briana aware. No sob or resp. distress noted.
[2022-12-30] MEDS: DULOXETINE HCL 30 MG CAPSULE.DR PO SCH (09:00)
[2022-12-30] MEDS: DULOXETINE HCL 20 MG CAPSULE.DR PO SCH (09:11)
[2022-12-30] MEDS: DILTIAZEM HCL CD 180 MG PO SCH (09:11)
--- NOTE | 2022-12-30 09:16 | NUR ---
TWO SEPARATE DOSE OF CYMBALTA 20MG AND 30MG AT THE SAME TIME. CALLED TO PHARMACY TO CLARIFY, THEY SAID WILL GIVE UPDATE LATER, HOLDING 30MG DOSE FOR NOW, 20MG ADMINISTERING.
[2022-12-30] MEDS: FUROSEMIDE 20 MG/2 ML VIAL IV SCH (09:34)
[2022-12-30] MEDS ORDERED: LORAZEPAM INJ 2 MG/ML VIAL IV PRN (10:30)
[2022-12-30] MEDS ORDERED: POTASSIUM CL. PREMIX PERIPHER. 50 ML IV SCH (11:30)
[2022-12-30] MEDS: POTASSIUM CHLORIDE 20 MEQ TAB.PRT.SR PO SCH ×3 (11:36→13:30)
[2022-12-30 12:00] VITALS: BP 124/77
[2022-12-30] MEDS ORDERED: SOD FERRIC GLUC 125 MG in IV NS 0.9% 100 ML IV SCH (14:00)
[2022-12-30 16:00] VITALS: BP 132/93
--- NOTE | 2022-12-30 16:05 | NUR ---
PATIENT BECAME RESTLESS, ASKING FOR MEDICATION TO CALM DOWN. ATIVAN 1MG/1ML DILUTED WITH 10ML OF SALINE FLUSH AND ADMINISTERED IV. PT REMAIN UNDER SUPERVISION, REPORTED IMPROVEMENT.
--- NOTE | 2022-12-30 19:02 | NUR ---
RN CLOSING NOTE PATIENT IN BED AWAKE, ON 4L OXYGEN VIA NC, SAT 95% IV ACCESS LEFT FA 20G SL, INTACT PATENT. PATIENT IS AMBULATORY WITH ASSISTANCE, BPR. SAFETY MEASURE IMPLEMENT BED IN LOW POSITION AND LOCKED, HEAD OF THE BED ELEVATED,CALL LIGHT WITHIN REACH, WILL ENDORSE FOR UPCOMING SHIFT FOR CARLY.
--- NOTE | 2022-12-30 19:30 | NUR ---
RN Opening Notes Received pt in bed, asleep, awakens to verbal stimuli. AOx4, able to make needes known. On NC 4LPM and tolerating well. No SOB noted. No s/sx of respiratory distress noted. Tele monitor detects Sinus tachycardia. IV access in LFA #20G. IV is intact, patent, and flushing well. Safety precautions in place: bed in lowest, locked position, siderails upX2, and brakes on. Table and call light within reach. All needs met at this time.
[2022-12-30 20:00] VITALS: BP 146/72
[2022-12-30] MEDS: MIRTAZAPINE 15 MG TABLET PO SCH (21:33)
[2022-12-30] MEDS: LEVOFLOXACIN 750 MG /D5W 150ML 750 MG in PREMIX 1 EA IV SCH (21:33)
[2022-12-30] MEDS: ENOXAPARIN SODIUM 40 MG/0.4 ML DISP.SYRIN SQ SCH (21:37)
[2022-12-30] MEDS ORDERED: ZOLPIDEM TARTRATE 5 MG TABLET PO PRN (23:30)
--- NOTE | 2022-12-30 23:36 | NUR ---
RN Notes Administered ambien for sleep per MD order.
[2022-12-31] VITALS: BP 146/86
[2022-12-31] MEDS: IPRATROPIUM NEB FS 0.5 MG/2.5 ML AMPUL.NEB NEB SCH ×3 (03:12→11:54)
[2022-12-31] MEDS: ALBUTEROL FS 2.5 MG/0.5 ML VIAL.NEB NEB SCH ×3 (03:30→11:54)
--- NOTE | 2022-12-31 03:59 | NUR ---
PT REFUSED [address] [place].
[2022-12-31 04:00] VITALS: BP 132/92
--- NOTE | 2022-12-31 06:32 | NUR ---
RN Closing Notes Pt in bed, asleep, awakens to verbal stimuli. AOx4, able to make needs known. On NC 4LPM and tolerating well. No SOB noted. No s/sx of respiratory distress noted. Tele monitor detects Sinus tachycardia. IV access in LFA #20G. IV is intact, patent, and flushing well. All orders carried out. All needs met. Pt kept clean and dry. Safety precautions in place: bed in lowest, locked position, siderails upX2, and brakes on. Table and call light within reach. Will endorse to oncoming shift for CARLY.
[2022-12-31] MEDS: PANTOPRAZOLE 40 MG TABLET.DR PO SCH (07:29)
--- NOTE | 2022-12-31 07:44 | NUR ---
telemarketing manager opening note pt alert and oriented x4. pt is sinus tach on tele monitor. pt on 4 l nasal cannula tolerating above 92%. pt has left forearm 20 guage. iv patent, intact and flushing well. all safety measures in place. call lught within reach,. bed locked at lowest position. side rails up x2. bed alarm on
[2022-12-31 08:00] VITALS: BP 148/81
[2022-12-31] MEDS: DULOXETINE HCL 20 MG CAPSULE.DR PO SCH ×2 (08:42→09:00)
[2022-12-31] MEDS: FUROSEMIDE 20 MG/2 ML VIAL IV SCH (08:42)
[2022-12-31] MEDS: methylPREDNISolone SOD SUCC 40 MG/ML VIAL IV SCH (08:42)
[2022-12-31] MEDS: DILTIAZEM HCL CD 180 MG PO SCH (08:43)
[2022-12-31] MEDS ORDERED: PRED50TA PO (10:36)
[2022-12-31] MEDS ORDERED: LEVO250T59 PO (10:36)
[2022-12-31] MEDS ORDERED: FURO40TA5 PO (10:36)
[2022-12-31] MEDS ORDERED: FLUT1BLS12 IH (10:36)
[2022-12-31] MEDS ORDERED: ALBU18HF2 IH (10:36)
[2022-12-31] MEDS ORDERED: FERR325T23 PO (10:36)
[2022-12-31 12:00] VITALS: BP 135/60
--- NOTE | 2022-12-31 14:20 | NUR ---
MACHINE FELLER NOTE PT LEFT STABLE CONDITION. VITAL SIGNS STABLE. PICKED UP AMBULANCE. WENT DISCHARGE INSTRUCTIONS WITH PT AND MEDICATION LIST. PT VERBALIZED UNDERSTANDING AND AGREED. REMOVED IV AND TELE MONITOR BOX. ALL BELONGINGS WITH PATIENT.
[2022-12-31] MEDS ORDERED: LEVOFLOXACIN (250MG) 250 MG TABLET PO SCH (21:00)
== END 2022-12-31 14:20 | disposition home health service (06) | DRG 720 ==
LOC: ER 16:44 → TELE1 21:03
PROVIDERS: ADMIT Nurse Practitioner Acute Care; ATTEND Internal Medicine
DX: A41.9 Sepsis, unspecified organism (principal); J96.21 Acute and chronic respiratory failure with hypoxia; I50.33 Acute on chronic diastolic (congestive) heart failure; J15.9 Unspecified bacterial pneumonia; E44.0 Moderate protein-calorie malnutrition; E87.3 Alkalosis; J44.0 Chronic obstructive pulmonary disease with (acute) lower respiratory infection; I11.0 Hypertensive heart disease with heart failure; E11.9 Type 2 diabetes mellitus without complications; D50.9 Iron deficiency anemia, unspecified; J44.1 Chronic obstructive pulmonary disease with (acute) exacerbation; E66.01 Morbid (severe) obesity due to excess calories; J96.22 Acute and chronic respiratory failure with hypercapnia; Z20.822 Contact with and (suspected) exposure to COVID-19; K21.9 Gastro-esophageal reflux disease without esophagitis; Z79.51 Long term (current) use of inhaled steroids; Z79.899 Other long term (current) drug therapy; G47.33 Obstructive sleep apnea (adult) (pediatric); M19.90 Unspecified osteoarthritis, unspecified site; Z87.891 Personal history of nicotine dependence; Z99.81 Dependence on supplemental oxygen; Z68.41 Body mass index [BMI] 40.0-44.9, adult; F41.9 Anxiety disorder, unspecified; K76.0 Fatty (change of) liver, not elsewhere classified; E78.5 Hyperlipidemia, unspecified; E86.1 Hypovolemia; R74.01 Elevation of levels of liver transaminase levels
CPT/HCPCS: 36415; 36600; 71045-TC; 76700-TC; 80048-TC; 80076-TC; 82803-TC; 83540-TC; 83735-TC; 83880; 84100-TC; 85025-TC; 85730-TC; 87081-TC; 93307-TC; 94799-TC; A4216; A4223; C9803; G0378; J1650; J1940; J1956; J2060; J2916; J2920; J7030; J7050